=== PATIENT | female | born 1995 | race Caucasian/White ===

== ENCOUNTER 2022-04-30 12:49 | Outpatient (REF) | payer OTHER, SELFPAY ==
[2022-05-01 10:58] LABS: COVID-19 RT-PCR UVMMC Result Negative (Negative)
== END 2022-04-30 12:50 | disposition home or self-care (01) ==
LOC: LBN 12:49
PROVIDERS: PCP Nurse Practitioner; Visit Provider Physician Assistant Medical
DX: J02.9 Acute pharyngitis, unspecified (principal); Z20.822 Contact with and (suspected) exposure to COVID-19
CPT/HCPCS: U0003; 87070

== ENCOUNTER 2022-05-11 03:33 | Outpatient (CLI) | payer OTHER, SELFPAY ==
[2022-05-11 16:58] LABS: TSH (W/Ref FT4) 2.35 uIU/mL (0.36-3.74)
== END 2022-05-11 03:34 | disposition home or self-care (01) ==
LOC: LBO 03:33
PROVIDERS: PCP Nurse Practitioner; Referring Provider Nurse Practitioner; Visit Provider Nurse Practitioner
DX: R53.83 Other fatigue (principal); R63.5 Abnormal weight gain
CPT/HCPCS: 36415; 84443

== ENCOUNTER 2022-05-21 10:34 | Outpatient (REF) | payer OTHER, SELFPAY ==
--- NOTE | 2022-05-21 09:40 | PAPFT_PTH ---
PATIENT: Halle Ovalles LOC: [facility] U#:[id number] AGE/SX: 27/F ROOM: RE05/21/[address]: Veronica Loaiza MD : [id number] BED: DIS: 05/21/2022 SPEC #: [id number] RECD: 05/21/22 12:48 STATUS: NISA REJeremy #: [id number] CHAYA: 05/21/22 09:[address]: Veronica Loaiza DEPT: [facility] Cytology RECD BY: Sheyla Arshad ENTERED: 05/21/22 12:48 SP TYPE: PAPFT OT DR: Jeri Dodson APRN Tissues: 1 - CX/ENDOCX FOR PAP SMEARS Procedures: PAP THIN PREP/UVM Screening Comments: [id number] (CHLAMYDIA/GC)
[2022-05-22 18:21] LABS: Chlamydia Result Negative (Negative); GC Result Negative (Negative)
== END 2022-05-21 10:35 | disposition home or self-care (01) ==
LOC: LBN 10:34
PROVIDERS: PCP Nurse Practitioner; Visit Provider Obstetrics & Gynecology
DX: Z11.3 Encounter for screening for infections with a predominantly sexual mode of transmission (principal); Z12.4 Encounter for screening for malignant neoplasm of cervix
CPT/HCPCS: 87491; 87591; 88142

== ENCOUNTER → 2022-06-10 01:33 | Outpatient (CLI) | payer OTHER, SELFPAY ==
--- NOTE | 2022-06-10 15:01 | DI.US_ITS ---
APPROVED REPORT EXAM: Comprehensive 2D, Doppler, and color-flow Echocardiogram Patient Location: [facility] Preparator: Denisha Pride RDCS (AE) Indications: Systolic murmur Other Information Study Quality: Good Conclusion Normal left ventricular wall thickness and chamber size. Estimated ejection fraction is 60%. Wall m otion is normal Normal right ventricular size and systolic function Both atria are normal in size There are no structural or hemodynamically significant valvular abnormalities Estimated right ventricular systolic pressure is normal at 24 mmHg Wall motion Left Ventricle The left ventricle is normal size. The left ventricular systolic function is normal. The left ventric ular ejection fraction is within the normal range. There is normal left ventricular wall thickness. T here is normal LV segmental wall motion. There is no ventricular septal defect visualized. LVEF is 60 %. Right Ventricle The right ventricle is normal size. The right ventricular systolic function is normal. The RVSP is 24 .1 mmHg. Atria The left atrium size is normal. The right atrium size is normal. The interatrial septum is intact wit h no evidence for an atrial septal defect. Aortic Valve The aortic valve is normal in structure. Aortic valve is trileaflet. There is no aortic valvular sten osis. No aortic regurgitation is present. Mitral Valve The mitral valve is normal in structure. No evidence of mitral valve stenosis. Trace mitral regurgita tion. Tricuspid Valve The tricuspid valve is normal in structure. There is no tricuspid valve stenosis. Trace tricuspid reg urgitation. Pulmonic Valve The pulmonary valve is normal in structure. There is no pulmonic valvular stenosis. There is no pulmo dioni valvular regurgitation. Great Vessels The aortic root is normal in size. The ascending aorta is normal in size. Aortic arch is normal in ca liber. Pericardium There is no pericardial effusion. 2D Dimensions IVSD d PLAX 0.74 cm F: 0.6-1.0 LV Vol A2C d MOD 107.6 mL LVPW d PLAX 0.76 cm F: 0.6 - 1.0 LV Vol A4C d MOD 121.2 mL LVID d PLAX 5.03 cm F: 3.8 - 5.2 LA vol/ BSA A2C s A-L 33.8 mL/m2 LVDs 3.35 cm F: 2.2 - 3.5 LA vol/ BSA A4C s A-L 25.4 mL/m2 Ao Root d 2.40 cm F: 2.7 - 3.3 LA Vol/ BSA Biplane s A-L 30.9 mL/m2 RA Area A4C 15.33 cm2 LA Area A4C s MOD 18.48 cm2 RA Vol/ BSA A4C s A-L 19.6 mL/m2 LA Area A2C s MOD 20.25 cm2 Ao Asc Diam d 3.07 cm F: 2.3 - 3.1 LV EF A4C MOD 60.9 % LV EF Teichholz 60.8 % LV EF A2C MOD 60.4 % LVEF (Soares's) 59.70 % F: 54 - 74 LV EF Biplane MOD 59.7 % LV Volume 87.67 mL F: 46 - 106 SV 69.73 mL LV Volume Index 44.05 mL/m2 F: 29 - 61 SV Index 34.94 mL/m2 LV Vol Biplane MOD 116.8 mL FS 32.60 % M-Mode TAPSE 2.63 cm (M/F) >1.7 LV Diastology MV E' medial 0.112 (>0.07 m/s) E/A Ratio 2.2 LV E/e MED 9.75 (<14) MV E Vmax 1.10 (0.4-1.3 m/s) MV E' lateral 0.244 (>0.1 m/s) MV A Vmax 0.50 (0.4-1.3 m/s) LV E/e LAT 4.50 (<14) MV E/A Ratio 2.02 MV E/E' medial 9.78 MV E/E' lateral 4.50 Aortic Valve LVOT Area 2.87 cm2 AoV Area Vmax 2.78 cm2 LVOT Vmax 1.63 m/s AoV Area/ BSA (Vmax) 1.39 cm2/m2 LVOT Mean Fredrick. 1.07 m/s JEREMIAH Mean Fredrick. 2.61 cm2 LVOT Peak Grad 10.7 mmHg JEREMIAH Mean Fredrick. Index 1.31 cm2/m2 LVOT Mean Grad 5.4 mmHg LVOT VTI 0.358 m LVOT Diam s 1.90 cm AoV Vmax 1.69 m/s Velocity Ratio 0.96 AoV Mean Fredrick. 1.18 m/s AoV Peak Grad 11.4 mmHg LVOT SV 102.77 mL AoV Mean Grad 6.3 mmHg AoV VTI 0.349 m AoV Area VTI 2.94 cm2 AoV Area/ BSA (VTI) 1.47 cm/m2 Mitral Valve MV DT 211 (160-240 msec) MV PHT 61 msec MV Area PHT 3.59 cm2 MV VTI 0.430 m MV Area VTI 2.39 (4.0-6.0 cm2) Pulmonary Valve PV Vmax 1.32 (0.5-1.5 m/s) RVOT Peak Gr. 4.29 mmHg PV Peak Grad 7.0 mmHg RVOT Mean Gr. 1.95 mmHg PV Mean Grad 3.6 mmHg RVOT VTI 0.233 m PV VTI 0.275 m RVOT Vmax 1.04 m/s Tricuspid Valve TR Peak Grad 21.1 mmHg TR Vmax 2.30 m/s RA Pressure 3.00 mmHg RVSP (TR) 24.1 mmHg
== END ==
PROVIDERS: PCP Nurse Practitioner; Visit Provider Nurse Practitioner
DX: R01.1 Cardiac murmur, unspecified (principal)
CPT/HCPCS: 93306

== ENCOUNTER 2022-10-09 16:04 | Outpatient (REF) | payer OTHER, SELFPAY | END 2022-10-09 16:05 | disposition home or self-care (01) | LOC: LBN 16:04 | PROVIDERS: PCP Nurse Practitioner; Visit Provider Family Medicine | DX: N39.0 Urinary tract infection, site not specified (principal) | CPT/HCPCS: 87077; 87086 ==

== ENCOUNTER 2023-07-16 03:09 | Outpatient (CLI) | payer OTHER, SELFPAY ==
[2023-07-16 15:12] LABS: Abs Immature Grans 0.01 10^3/uL (0.0-0.06); Absolute Basophil Count 0.05 10^3/uL (0.0-0.2); Absolute Eosinophil Count 0.14 10^3/uL (0.0-0.7); Absolute Lymphocyte Count 2.46 10^3/uL (1.2-3.4); Absolute Monocyte Count 0.61 10^3/uL (0.1-0.8); Basophils % 0.7; HCT 39.3 % (36.0-46.0); HGB 13.5 g/dL (11.2-15.7); Immature Grans % 0.1; Lymphocytes % 34.3; MCH 30.8 pg (27.0-33.0); MCHC 34.4 % (32.0-36.0); MCV 90 fL (80-95); MPV 11.1 fL (8.0-11.0); Monocytes % 8.5; Neutrophils % 54.4; Platelet Count 273 10^3/uL (130-400); RBC 4.38 10^6/uL (3.93-5.22); RDW 12.6 % (11.7-14.6); RDW-SD 41.6 fL; WBC 7.17 10^3/uL (4.4-10.8)
[2023-07-16 15:36] LABS: ESR 15 mm/hr (0-20)
[2023-07-16 16:22] LABS: FREE T4 0.87 ng/dL (0.76-1.46)
[2023-07-16 16:43] LABS: Vitamin D 25 Total 28.8 ng/mL (30-100)
[2023-07-16 16:45] LABS: ALT 20 U/L (14-59); AST 20 U/L (15-37); Albumin 3.8 g/dL (3.4-5.0); Alkaline Phosphatase 75 U/L (46-116); Anion Gap 7.5 mmol/L (3-11); BUN 14 mg/dL (7-18); Bilirubin, Total 0.3 mg/dL (0.2-1.0); CO2 27.5 mmol/L (21.0-32.0); CREATININE 0.7 mg/dL (0.55-1.02); Calcium 9.2 mg/dL (8.5-10.1); Chloride 104 mmol/L (98-107); Estimated GFR 119.99 (mL/min/1.73m2); Ferritin 64 ng/mL (8-252); Glucose 94 mg/dL (74-106); Potassium 3.5 mmol/L (3.5-5.1); Sodium 139 mmol/L (136-145); Total Protein 7.4 g/dL (6.4-8.2); Vitamin B12 336 pg/mL (193-986)
[2023-07-16 22:02] LABS: Rheumatoid Factor <8.6 IU/mL (<12.0)
[2023-07-16 22:20] LABS: T3,Free 3.2 pg/mL (2.8-5.3)
[2023-07-19 11:25] LABS: Lyme Ab w Rflx to Lyme Confirm Negative (Negative)
[2023-07-19 12:28] LABS: ANA Interpretation Negative (Negative)
[2023-07-19 22:41] LABS: Anaplasma phagocytophilum Negative (Negative); B. miyamotoi PCR Negative (Negative); Babesia divergens/MO-1 Negative (Negative); Babesia duncani Negative (Negative); Babesia microti Negative (Negative); Ehrlichia chaffeensis Negative (Negative); Ehrlichia ewingii/canis Negative (Negative); Ehrlichia muris eauclairensis Negative (Negative)
== END 2023-07-16 03:10 | disposition home or self-care (01) ==
LOC: LBO 03:09
PROVIDERS: PCP Nurse Practitioner; Visit Provider Nurse Practitioner
DX: E55.9 Vitamin D deficiency, unspecified (principal); R52 Pain, unspecified; R53.83 Other fatigue
CPT/HCPCS: 36415; 80053; 82306; 85652; 87798; 82607; 82728; 84439; 84443; 84481; 85025; 86038; 86431; 86618

== ENCOUNTER 2025-02-21 02:13 | Outpatient (CLI) | payer OTHER, SELFPAY ==
--- NOTE | 2025-02-21 07:45 | DI.RAD_ITS ---
Exam(s) XR FOOT LT COMPLETE EXAM: XR FOOT LT COMPLETE CLINICAL HISTORY: Left foot pain,m79.672. TECHNIQUE: 2D digital imaging was performed. COMPARISON: CR XR FOOT RT COMPLETE from 02/21/2025 FINDINGS: 3 views No evidence of acute fracture nor diastasis of the Lisfranc joint. Great toe metatarsophalangeal sahil nt appears un remarkable. Bone density is normal. No osseous lesions nor erosions. No obvious dege nerative changes. No pes planus. There is a moderate size inferior calcaneal spur noted and there i s a small enthesophyte on the posterior calcaneus Achilles insertion site. IMPRESSION: As above but no acute osseous findings in left foot. DATA REPOSITORY: RADIATION DOSE DELIVERED:
--- NOTE | 2025-02-21 07:45 | DI.RAD_ITS ---
Exam(s) XR FOOT RT COMPLETE EXAM: XR FOOT RT COMPLETE CLINICAL HISTORY: Right foot pain,m79.671. TECHNIQUE: 2D digital imaging was performed of the right foot. Three images were obtained. AP, obl ique and lateral views were obtained. COMPARISON: No exams were available for comparison FINDINGS: BONES: No acute fracture is present. No bony destructive lesion is seen. There is a plantar calcaneal spur. JOINTS: No dislocation present. SOFT TISSUE: Normal. IMPRESSION: Plantar calcaneal spur. DATA REPOSITORY: RADIATION DOSE DELIVERED:
== END 2025-02-21 02:33 ==
LOC: DI 02:13
PROVIDERS: PCP Nurse Practitioner; Visit Provider Podiatrist
DX: M79.672 Pain in left foot (principal); M79.671 Pain in right foot; M77.31 Calcaneal spur, right foot
CPT/HCPCS: 73630

== ENCOUNTER 2025-06-26 14:14 | Emergency (ER) | payer SELFPAY ==
[2025-06-26 14:23] VITALS: BP 147/89; PULSE 57; RESP 20; TEMP 36.9; O2SAT 98
--- NOTE | 2025-06-26 14:53 | ED.GENADUL_ITS ---
Discharge Plan Disposition Patient Disposition: Home Condition: Stable Discharge Details Clinical Impression: Accidental hypodermic needlestick injury Primary Care Provider: Jeri Dodson ED Provider: Mango Peters Home Meds and New Rx's Prescriptions: Continued IUD intrauterine Patient Comments: lisy, done at in [place] trazodone 50 mg tablet 50 mg PO QHS PRN (Reason: sleep) Qty: 30 2RF Discharge Instructions Additional Instructions: If you do not have occupational medicine to follow-up with you can follow-up with your primary care provider for follow-up labs. If you have increased pain or redness at the site of the needlestick exposure return to the emergency department for reevaluation. HPI General Mode of arrival: ambulatory . Date/Time Provider Initiated Documentation: 06/26/25 14:40 . Limitations to Documentation: no limitations . Information obtained by: patient . History of Present Illness 30 year old F presents to the emergency department with the chief complaint of needle stick, described as mild, Patient started experiencing this day(s) (1) and it has been constant. No relieving factors improve symptom(s), No exacerbating factors reported . Patient notes no other symptoms.. Patient did receive the following treatments prior to arrival, none Related Data Home Medications ?Medication ?Instructions ?Recorded ?Confirmed IUD intrauterine 05/07/22 trazodone 50 mg tablet 50 mg PO QHS PRN sleep #30 t abs 11/17/22 06/26/25 Previous Rx's ?Medication ?Instructions ?Recorded trazodone 50 mg tablet 50 mg PO QHS PRN sleep #30 t abs 11/17/22 Allergies Allergy/AdvReac Type Severity Reaction Status Date / Time No Known Allergies Allergy Verified 06/26/25 14:29 General Stated Complaint: Patient Exposure Risk MAYO: 2 Review of Systems All systems reviewed & are unremarkable except as noted in HPI and below Exam Const General: no acute distress Orientation: alert HENMT Head: normal to inspection Ears: external ears normal General nose exam: external nose normal Mouth: moist mucous membranes Eyes General: appearance normal, both eyes and all related structures Neck Neck: normal visual inspection Resp Effort & Inspection: normal respiratory effort and able to speak in complete sentences Cardio Rate: regular rate Skin General skin exam: no rashes or lesions noted Neuro General: patient alert and patient oriented x3 Psych Mental Status: mental status grossly normal Course Vital Signs Vital signs: Vital Signs Temperature 36.9 C 06/26/25 14:23 Pulse 57 L 06/26/25 14:23 Respiratory Rate 20 06/26/25 14:23 Blood Pressure 147/89 H 06/26/25 14:23 Pulse Oximetry 98 06/26/25 14:23 Temperature 36.9 C 06/26/25 14:23 Temperature Source Oral 06/26/25 14:23 Pulse 57 L 06/26/25 14:23 Respiratory Rate 20 06/26/25 14:23 Blood Pressure 147/89 H 06/26/25 14:23 Blood Pressure Position Sitting 06/26/25 14:23 Pulse Oximetry 98 06/26/25 14:23 Oxygen Delivery Method Room Air 06/26/25 14:23 Oxygen Flow Rate 0 06/26/25 14:23 Medical Decision Making 30-year-old female states 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 She states she had labs done but the patient had yesterday so is not sure if she should have HIV prophylaxis. She says that infection control was able to look in the chart so no red flags of this elderly patient that the needle is from. Patient is otherwise asymptomatic and has no complaints. We discussed the chance of HIV exposure being passed to her being low and given the patient had no red flags that they had HIV we had shared decision making not to initiate HIV prophylaxis. She will follow-up with her PCP/occ med Differential Diagnosis Differential Diagnosis: needle stick, exposure PFS All Active Problems (Updated 06/26/25 @ 15:00 by Mango Peters MD) Accidental hypodermic needlestick injury (Acute) Pain in both feet (Acute) Achilles tendon contracture, bilateral (Acute) Plantar fasciitis, bilateral (Acute) Pain in right foot (Acute) Plantar verruca (Acute) Anxiety (Chronic) Medical History Depression Presence of IUD Paragard placed 2016 Surgical History History of tonsillectomy (~03/20/15) [facility] - Dr. Rogel Family History Maternal Grandfather Alcohol use disorder Paternal Grandmother Breast cancer Bone cancer Diabetes Paternal Grandfather Lung cancer Heart disease Maternal Grandmother Hypertension Mother Depression Other Stroke Thyroid disease Social History Smoking/Tobacco Use Status: Never Smoking risk assessment performed?: Yes Alcohol Intake: current Alcohol Intake frequency: a few times a month Drug use: Never Substance use type: does not use Adopted: No Caregiver/Support person: No Foster care: No Household members: significant other Housing: house Communication Needs: None Education Level: college Details: Bachelor's Degree Do you need help understanding health information?: Rarely 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 Pets and animals: Yes Sexually active: Yes Do you think of yourself as: bisexual Current gender identity: female What is your relationship status?: living with partner How often do you talk on the phone with friends or family?: once per week How often do you get together with friends or relatives?: once per week Do you belong to any clubs or organized social groups?: no Panel score (0-1 are the most socially isolated patients): 1 What type of physical activity do you participate in: bicycling and weight lifting Duration: 45-60 minutes/day Frequency: 1-2 times per week Camryn/Adventist: None Special camryn needs: No Seatbelt use: always Helmet use: Yes Helmet use: always Drive intox or ride w/intox commercial relief driver: No PAWSS Have you Been Recently Intoxicated or Drunk Within the Last 30 days?: Yes Have you Ever Experienced Previous Episodes of Alcohol Withdrawal?: No Have you ever Experienced Withdrawal Seizures?: No Have you ever Experienced Delirium Tremens(DT)s?: No Have you ever undergone Alcohol Rehabilitation Treatment (i.e, inpt ot outpatient treatment programs)?: No Have you ever Experienced Blackouts?: No Have you ever Combined Alcohol with other Downers within the last 90 days?: No Have you ever Combined Alcohol with any other Substance of Abuse during the last 90 days?: No Positive Blood Alcohol level on Presentation? [PCS.BAL]: No Evidence of Increased Autonomic Activity (i.e. HR>120, tremor, sweating, agitation, nausea)?: No Result: 1
== END 2025-06-26 15:12 | disposition home or self-care (01) ==
PROVIDERS: Emergency Provider Emergency Medicine; PCP Nurse Practitioner
DX: S61.432A Puncture wound without foreign body of left hand, initial encounter (principal); Y99.0 Civilian activity done for income or pay; W46.0XXA Contact with hypodermic needle, initial encounter
CPT/HCPCS: 99282; 99281

== ENCOUNTER 2025-09-04 10:35 | Outpatient (CLI) | payer OTHER, SELFPAY ==
[2025-09-04 10:28] LABS: HCT 39.4 % (36.0-46.0); HGB 13.2 g/dL (11.2-15.7); MCH 29.8 pg (27.0-33.0); MCHC 33.5 % (32.0-36.0); MCV 89 fL (80-95); MPV 10.9 fL (8.0-11.0); Platelet Count 280 10^3/uL (130-400); RBC 4.43 10^6/uL (3.93-5.22); RDW 12.6 % (11.7-14.6); RDW-SD 40.9 fL; WBC 5.99 10^3/uL (4.4-10.8)
[2025-09-04 10:50] LABS: Hemoglobin A1C 5.5 % (<5.7)
[2025-09-04 11:10] LABS: ALT 13 U/L (14-59); AST 16 U/L (15-37); Albumin 3.8 g/dL (3.4-5.0); Alkaline Phosphatase 76 U/L (46-116); Anion Gap 7.0 mmol/L (3-11); BUN 9 mg/dL (7-18); Bilirubin, Total 0.5 mg/dL (0.2-1.0); CO2 30.0 mmol/L (21.0-32.0); Calcium 9.3 mg/dL (8.5-10.1); Chloride 102 mmol/L (98-107); Ferritin 62 ng/mL (8-252); Glucose 80 mg/dL (74-106); Potassium 4.2 mmol/L (3.5-5.1); Sodium 139 mmol/L (136-145); TSH (W/Ref FT4) 2.50 uIU/mL (0.36-3.74); Total Protein 7.6 g/dL (6.4-8.2)
== END 2025-09-04 10:36 | disposition home or self-care (01) ==
LOC: LBO 10:35
PROVIDERS: PCP Nurse Practitioner; Visit Provider Nurse Practitioner Family
DX: R53.83 Other fatigue (principal)
CPT/HCPCS: 36415; 80053; 85027; 82728; 83036; 84443

== ENCOUNTER 2025-09-06 08:02 | Outpatient (RCR) | payer OTHER, SELFPAY ==
--- NOTE | 2025-09-11 11:45 | W.HOLTRPT ---
Date of service: 09/11/25 Time of Service: 11:45 Holter Monitor Report Referring Provider:: Jo Ragsdale Indications:: Syncope Holter Monitor Note: This is a 48-hour Holter monitor. Rhythm throughout was sinus with an average heart rate of 68. Minimum was 39, maximum 136 A total of 3 premature ventricular contractions were recorded There were very rare isolated atrial premature beats There was no atrial fibrillation, no high-grade AV block, no pauses greater than 3 seconds No symptoms were reported
== END 2025-09-30 23:59 | disposition home or self-care (01) ==
LOC: CARDOPNVT 08:02
PROVIDERS: PCP Nurse Practitioner; Visit Provider Nurse Practitioner Family
DX: R55 Syncope and collapse (principal); I49.3 Ventricular premature depolarization
CPT/HCPCS: 93225; 93226

== ENCOUNTER → 2025-10-09 00:31 | Outpatient (CLI) | payer OTHER, SELFPAY ==
--- NOTE | 2025-10-09 06:45 | DI.MRI_ITS ---
Exam(s) MR LOWER JOINT LT WO EXAM: MR LOWER JOINT LT WO CLINICAL HISTORY: Recalcitrant heel pain,bilat achilles tendon contracture,plantar fascitis TECHNIQUE: Multiplanar multisequence MRI was performed without intravenous contrast. COMPARISON: CR XR FOOT LT COMPLETE from 02/21/2025 MR MR LOWER JOINT RT WO from 10/09/2025 FINDINGS: BONES/JOINTS: There is a small heel spur. There is edema in the Ragley as well as a small portion of the adjacent calcaneus and soft tissues. No fracture or contusion pattern. No bone lesions identified. The talar dome is smooth. The ankle mortise is maintained. A small tibiotalar joint effusion is present. Is also some fluid at the posterior talocalcaneal joint. LIGAMENTS: The tibiofibular and calcaneofibular ligaments are intact. The talofibular ligaments are intact. The deltoid ligament is intact. The syndesmosis is unremarkable. Sinus tarsi is normal. MUSCULOTENDINOUS STRUCTURES: Achilles tendon: Unremarkable. Plantar fascia: Unremarkable there is thickening proximally. There is a focal area of high signal near the plantar spur suspicious for a partial tear. The distal fascia is intact. Anterior Extensor tendons: Unremarkable. Posterior Tibialis: Unremarkable. Flexor Digitorum longus: Unremarkable. Flexor Hallucis longus: Unremarkable. Peroneus longus: Unremarkable. Peroneus brevis:Unremarkable. IMPRESSION: Focal partial tear in the plantar fascia near the heel spur with surrounding edema in the bone and soft tissues. The Achilles tendon appears normal. DATA REPOSITORY:
--- NOTE | 2025-10-09 06:45 | DI.MRI_ITS ---
Exam(s) MR LOWER JOINT RT WO EXAM: MR LOWER JOINT RT WO CLINICAL HISTORY: Recalcitrant heel pain,bilat plantar fascitis,achilles tendon contacture TECHNIQUE: Multiplanar multisequence MRI was performed without intravenous contrast. COMPARISON: Plain films 21 February 2025 FINDINGS: BONES/JOINTS: There is a small plantar calcaneal spur. There is mild edema at and adjacent to the spur. No fracture or contusion pattern. No bone lesions identified. The talar dome is smooth. The ankle mortise is maintained. No joint effusion is present. LIGAMENTS: The tibiofibular and calcaneofibular ligaments are intact. The talofibular ligaments are intact. The deltoid ligament is intact. The syndesmosis is unremarkable. Sinus tarsi is normal. MUSCULOTENDINOUS STRUCTURES: Achilles tendon: Unremarkable. Plantar fascia: Unremarkable mild thickening and mild surrounding edema at the calcaneus. The remaining tendon appears normal. No visible tear. Anterior Extensor tendons: Unremarkable. Posterior Tibialis: Unremarkable. Flexor Digitorum longus: Unremarkable. Flexor Hallucis longus: Unremarkable. Peroneus longus: Unremarkable. Peroneus brevis:Unremarkable. SOFT TISSUES: Unremarkable. IMPRESSION: Small heel spur. Mild surrounding inflammation. No visible tear. DATA REPOSITORY:
== END ==
LOC: DI 00:32
PROVIDERS: PCP Nurse Practitioner; Visit Provider Podiatrist
DX: M67.01 Short Achilles tendon (acquired), right ankle (principal); M67.02 Short Achilles tendon (acquired), left ankle; M72.2 Plantar fascial fibromatosis; S86.812A Strain of other muscle(s) and tendon(s) at lower leg level, left leg, initial encounter; X58.XXXA Exposure to other specified factors, initial encounter
CPT/HCPCS: 73721